=== PATIENT | male | born 1955 | race Caucasian/White ===

== ENCOUNTER 2016-09-17 05:47 | Emergency (ER) | payer OTHER ==
[~2016-09-17 05:47] MED LIST: ALPRAZOLAM1 MG PO; ASPIRIN EC81 M1 PO; BUPROPION HYDR300 M1 PO; CIPRO500 M1 PO; FLAGYL250 M1 PO; LIDODERM1 EACH EXT; LOSARTAN-HCTZ1 EAC2 PO; NEXIUM 24HR22.3 MG; NORCO 325 MG-51 TAB PO; OXYCODONE HCL5 M1 PO; PERCOCET 325 MG1 TA2 PO; SEROQUEL XR50 M1 PO; TESTOSTERO200 MG/1 M IM; TRAMADOL HCL50 M1 PO; TRAZODONE100 MG PO; VENTOLIN HFA18 GM INH; WELLBUTRIN XL300 M2 PO; XANAX1 M1 PO
--- NOTE | 2016-09-17 06:32 | ED NECK/BACK PAIN COMPLAINT ---
History of Present Illness General Chief Complaint: Low Back Pain/Injury Stated Complaint: BACK PAIN S/P FALL LAST WK,DIFF BREATHING Source: patient, old records Exam Limitations: no limitations Vital Signs & Intake/Output Vital Signs & Intake/Output Vital Signs Date Time Temp Pulse Resp B/P Pulse O2 O2 Flow FiO2 Ox Delivery Rate 09/17 0746 97.1 74 18 145/88 98 Room Air 09/17 0607 Room Air 09/17 0558 96.4 85 20 135/84 96 Room Air Allergies Coded Allergies: metoprolol (Intermediate, WHEEZE 09/17/16) aripiprazole (Intermediate, LOSES PSYCHO-MOTOR SKILLS 09/17/16) quetiapine (Intermediate, RESTLESS LEG 09/17/16) Triage Note: TRIAGE: PATIENT TO ER FROM HOME REPORTS S/P SLIP AND FALL ON ICE ON THURSDAY, INCREASED PAIN TO BACK. PATIENT ALSO HX DJD. PATIENT REPORTS PAIN 10/10, "AND HURT SO BAD THAT THIS MORNING I THINK IT PUT ME INTO AN ASTHMA ATTACK AND USED INHALER." PATIENT DENIES SOB AT THIS TIME, SPEECH CLEAR. Triage Nurses Notes Reviewed? yes HPI: Patient presents for evaluation of low back pain. He states he fell down 2 stairs on Thursday. He states yesterday he lifted some boxes with worsening of his low back pain. Since then he has had a constant severe sharp pain that gets worse with movement. Tylenol helped his back pain until he moved the boxes. Currently the pain is a 10 over 10. This morning the patient thinks that the pain aggravated his asthma and he had some wheezing. Patient denies urinary or fecal incontinence or urinary retention. He denies any numbness or tingling or saddle paresthesias. (NIRALI SANCHEZ,YUN Tejeda) Reconcile Medications Albuterol Sulfate (Ventolin Hfa) 18 GM HFA.AER.AD 2 PUF INH Q4-6 PRN PRN SOB (Reported) Alprazolam 1 MG TABLET 1 TAB PO TID ANXIETY (Reported) Baclofen 10 MG TABLET 1-2 TAB PO TID PRN muscle strain Bupropion HCl (Wellbutrin XL) 300 MG TAB.ER.24H 300 MG PO DEPRESSION ( Reported) Esomeprazole Magnesium (Nexium 24HR) 22.3 MG CAPSULE.DR 22.3 MG HEARTBURN ( Reported) Lidocaine (Lidoderm) 1 EACH ADH..PATCH 1 PAT EXT DAILY PRN muscle pain Losartan/Hydrochlorothiazide (Losartan-Hctz 100-25 MG Tab) 1 EACH TABLET 1 TAB PO DAILY HIGH BLOOD PRESSURE (Reported) Please consult with GI doctor before restarting LAST GIVEN: 02/15/16 @ 0900 (SUHASGEORGIAMAYKEL) Oxycodone HCl/Acetaminophen (Percocet 5-325 MG Tablet) 5 MG-325 MG TABLET 1 TAB PO 4 TIMES/DAY PRN severe pain Quetiapine Fumarate (Seroquel XR) 50 MG TAB.ER.24H 50 MG PO 0800 ANXIETY ( Reported) Testosterone Cypionate 200 MG/1 ML VIAL 1 ML IM Q2W LOW TESTOSTERONE ( Reported) DUE TODAY IM TO GLUTELAL REGION TRAZODONE HCL (Trazodone HCl) 100 MG TABLET 1 TAB PO QPM PRN SLEEP (Reported) (ADE SANCHEZ,SHAMAR) Past History Travel History Traveled to [place] past 21 day No Medical History Any Pertinent Medical History? see below for history Neurological: NONE EENT: NONE Cardiovascular: hypertension Respiratory: NONE Gastrointestinal: GERD Hepatic: NONE Renal: NONE Musculoskeletal: chronic arthralgias/DJD Psychiatric: anxiety, bipolar disease, depression Endocrine: NONE Blood Disorders: NONE Cancer(s): NONE REFLEXOLOGIST/Reproductive: NONE History of MRSA: No History of VRE: No History of CDIFF: No Surgical History Surgical History: N Psychosocial History Who do you live with Spouse Services at Home None What is your primary language Kiswahili Tobacco Use: Refused to answer Family History Family History, If Any: MOTHER (Dementia). Age 80. FH: Alzheimers disease FATHER, , Age 83; Cause: Bladder cancer. FH: HTN (hypertension) FH: hyperlipidemia Relation not specified for: colonic polyps Hx Contributory? No (NIRALI SANCHEZ,YUN Tejeda) Review of Systems Review of Systems Constitutional: Reports: no symptoms. Eyes: Reports: no symptoms. Ears, Nose, Throat, Mouth: Reports: no symptoms. Respiratory: Reports: see HPI. Cardiovascular: Reports: no symptoms. Gastrointestinal/Abdominal: Reports: no symptoms. Musculoskeletal: Reports: see HPI. Skin: Reports: no symptoms. Neurological/Psychological: Reports: no symptoms. All Other Systems: Reviewed and Negative (NIRALI SANCHEZ,YUN Tejeda) Physical Exam Physical Exam Neck: see below Comments: Gen.: Well-nourished, well-developed, no acute respiratory distress. Head: Normocephalic, atraumatic. Eyes: Normal inspection bilaterally Ears: Normal inspection bilaterally Nose: Normal inspection Throat/mouth : Moist mucosa Neck: Supple, full range of motion, no goiter Heart: Regular rate and rhythm, no murmurs rubs or gallops Lungs: Clear to auscultation bilaterally with normal air entry Chest: Nontender Back: Decreased range of motion secondary to pain, tenderness over the paraspinal musculature in the lumbar region bilaterally. Tenderness over the sacrum and sacroiliac joints. Straight leg raise sign negative bilaterally. No saddle paresthesias. 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 (NIRALI SANCHEZ,YUN Tejeda) Plan of Care: xray Diagnostic Imaging: Viewed by Me: Radiology Read. Discussed w/RAD: Radiology Read. Radiology Impression: FINDINGS: No acute fracture or subluxation. Vertebral bodies and posterior elements are anatomically aligned. Vertebral body heights and intervertebral disc spaces are maintained. Small multilevel endplate osteophytes are present. Multilevel facet arthropathy. The sacroiliac joints are intact. The sacrum is intact. The bowel gas pattern is unremarkable. IMPRESSION: No acute fracture or malalignment. Mild multilevel degenerative changes. (SHAMAR BOOKER MD) Departure Departure Condition: Stable Referrals: CARLOS MANUEL SANCHEZ,OLIVER Reyna (PCP/Family) Departure Forms: Customer Survey General Discharge Information (NIRALI SANCHEZ,YUN Tejeda) Departure Time of Disposition: 827 Disposition: HOME OR SELF CARE Clinical Impression Primary Impression: Facet arthropathy, lumbar Secondary Impressions: Fall (on) (from) unspecified stairs and steps, initial encounter Prescriptions: Current Visit Scripts Baclofen 1-2 TAB PO TID PRN muscle strain #30 TAB Oxycodone HCl/Acetaminophen (Percocet 5-325 MG Tablet) 1 TAB PO 4 TIMES/DAY PRN severe pain #20 TAB (BRYAN BOOKER MDE)
--- NOTE | 2016-09-17 07:14 | RADIOLOGY REPORT ---
EXAMINATION: XR LUMBOSACRAL SPINE CLINICAL INFORMATION: Lower back pain status post fall COMPARISON: CT from 02/12/2016. TECHNIQUE: 4 views of the lumbosacral spine. FINDINGS: No acute fracture or subluxation. Vertebral bodies and posterior elements are anatomically aligned. Vertebral body heights and intervertebral disc spaces are maintained. Small multilevel endplate osteophytes are present. Multilevel facet arthropathy. The sacroiliac joints are intact. The sacrum is intact. The bowel gas pattern is unremarkable. IMPRESSION: No acute fracture or malalignment. Mild multilevel degenerative changes.
[2016-09-17 07:46] VITALS: BP 145/88
[2016-09-17] MEDS ORDERED: PERCOCET 5-3251 EACH PO (08:32)
[2016-09-17] MEDS ORDERED: BACLOFEN10 M1 PO (08:32)
== END 2016-09-17 08:41 ==
LOC: ERH 05:47
DX: M47.816 Spondylosis without myelopathy or radiculopathy, lumbar region (principal)
CPT/HCPCS: 72110